=== PATIENT | male | born 1995 | race Two or more races ===

== ENCOUNTER 2018-04-30 09:01 | Emergency (ER) | payer OTHER ==
[~2018-04-30] VITALS: Ht 182.9 cm; Wt 74.8 kg
[2018-04-30 09:04] VITALS: BP 147/81
== END 2018-04-30 09:20 | disposition home or self-care (01) ==
LOC: ER 09:11
DX: J45.901 Unspecified asthma with (acute) exacerbation (principal)
CPT/HCPCS: 99283; A4606

== ENCOUNTER 2018-08-13 07:42 | Emergency (ER) | payer OTHER ==
[~2018-08-13] VITALS: Ht 182.9 cm; Wt 74.8 kg
--- NOTE | 2018-08-13 07:53 | NUR ---
patient came in the ER c/o asthma attack started this morning, onroom air, breathing evenly andunlabored. Kept comfortable, will continue to monitor accordingly.
[2018-08-13 07:56] VITALS: BP 132/101
--- NOTE | 2018-08-13 07:57 | NUR ---
Patient discharged to home in stable condition. Written and verbal after care instructions given. Patient verbalizes understanding of instruction.
== END 2018-08-13 07:57 | disposition home or self-care (01) ==
LOC: ER 07:42
DX: J45.901 Unspecified asthma with (acute) exacerbation (principal)

== ENCOUNTER 2018-11-28 11:31 | Emergency (ER) | payer SELFPAY ==
[~2018-11-28] VITALS: Ht 182.9 cm; Wt 86.2 kg
[2018-11-28 12:17] VITALS: BP 129/85
== END 2018-11-28 12:48 | disposition home or self-care (01) ==
LOC: ER 11:31
DX: J45.909 Unspecified asthma, uncomplicated (principal); F10.10 Alcohol abuse, uncomplicated; Y90.9 Presence of alcohol in blood, level not specified; Z76.0 Encounter for issue of repeat prescription

== ENCOUNTER 2022-12-03 01:03 | Emergency (ER) | payer OTHER ==
[~2022-12-03] VITALS: Ht 182.9 cm; Wt 81.6 kg
[2022-12-03 01:08] VITALS: BP 139/82; TEMP 98; O2SAT 98
[2022-12-03] MEDS ORDERED: ALBU8.5H8 INH (01:15)
== END 2022-12-03 01:22 | disposition home or self-care (01) ==
LOC: ER 01:13
DX: Z76.0 Encounter for issue of repeat prescription (principal); J45.909 Unspecified asthma, uncomplicated

== ENCOUNTER 2023-03-05 18:20 | Emergency (ER) | payer OTHER ==
[~2023-03-05] VITALS: Ht 182.9 cm; Wt 81.2 kg
[~2023-03-05 18:20] MED LIST: ALBU8.5H8 INH
[2023-03-05 20:20] VITALS: BP 141/76; TEMP 98.2; O2SAT 97
[2023-03-05] MEDS ORDERED: ALBU18HF2 INH (20:47)
[2023-03-05] MEDS ORDERED: PRED50TA PO (20:47)
== END 2023-03-05 21:05 | disposition home or self-care (01) ==
LOC: ER 18:25
DX: J45.901 Unspecified asthma with (acute) exacerbation (principal); Z79.899 Other long term (current) drug therapy; Z88.1 Allergy status to other antibiotic agents

== ENCOUNTER 2023-08-10 22:12 | Emergency (ER) | payer OTHER ==
[~2023-08-10] VITALS: Ht 182.9 cm; Wt 90.7 kg
[~2023-08-10 22:12] MED LIST changes: +ALBU18HF2 INH; +PRED50TA PO
[2023-08-10 22:26] VITALS: TEMP 97.9
[2023-08-10] MEDS ORDERED: LORAZEPAM INJ 2 MG/ML VIAL ONE (22:58)
[2023-08-10] MEDS: LORAZEPAM INJ 2 MG/ML VIAL IV ONE (22:59)
[2023-08-10] MEDS: IV NS 0.9% 1,000 ML BAG IV ONE (22:59)
[2023-08-10 23:29] LABS: BASOPHILS # (AUTO) 0.3 K/uL (0.0-0.2); BASOPHILS % (AUTO) 4.9 % (0.0-2.0); EOSINOPHILS # (AUTO) 0.2 K/uL (0.0-0.7); EOSINOPHILS % (AUTO) 3.5 % (0.0-6.0); HEMATOCRIT 44 % (39-51); HEMOGLOBIN 15.6 g/dL (13.5-17.5); LYMPHOCYTES # (AUTO) 2.4 K/uL (0.8-4.8); LYMPHOCYTES % (AUTO) 41.7 % (20.0-44.0); MEAN CORPUSCULAR HEMOGLOBIN 31 PG (26.0-33.0); MEAN CORPUSCULAR HGB CONC 35 g/dl (31.0-36.0); MEAN CORPUSCULAR VOLUME 87 fL (80-96); MONOCYTES # (AUTO) 0.4 K/uL (0.1-1.30); MONOCYTES % (AUTO) 7.6 % (2.0-12.0); NEUTROPHILS # (AUTO) 2.4 K/uL (1.8-8.9); NEUTROPHILS % (AUTO) 42.3 % (43.0-81.0); PLATELET COUNT (AUTO) 379 K/uL (150-450); RED BLOOD CELL COUNT(AUTO) 5.07 MIL/uL (4.5-6.0); RED CELL DISTRIBUTION WIDTH 13.5 % (11.5-15.0); WHITE BLOOD COUNT (AUTO) 5.6 K/uL (4.3-11.0)
[2023-08-10 23:33] LABS: APPEARANCE,URINE CLEAR (CLEAR); BILIRUBIN,URINE NEGATIVE (NEGATIVE); BLOOD, URINE NEGATIVE Ery/uL (NEGATIVE); COLOR,URINE YELLOW (YELLOW); KETONES,URINE NEGATIVE (NEGATIVE); LEUKOCYTE ESTERASE ,URINE NEGATIVE (NEGATIVE); NITRITE, URINE NEGATIVE (NEGATIVE); PH,URINE 6.5 (5.0-8.0); PROTEIN,URINE NEGATIVE (NEGATIVE); UGLUCOSE NEGATIVE (NEGATIVE); UROBILINOGEN,URINE 0.2 EU/dL (0.2)
[2023-08-10 23:40] LABS: CALCIUM, SERUM 8.4 mg/dL (8.5-10.1); CARBON DIOXIDE 22 mmol/L (21-32); CHLORIDE 104 mmol/L (98-107); CREATININE 0.8 mg/dL (0.6-1.3); GLUCOSE 115 mg/dL (74-106); POTASSIUM 3.4 mmol/L (3.5-5.1); SODIUM SERUM 140 mmol/L (136-145); UREA NITROGEN, BLOOD 4 mg/dL (7-18)
[2023-08-10 23:42] LABS: AMPHETAMINE, URINE NEGATIVE (NEGATIVE); BARBITURATE, URINE NEGATIVE (NEGATIVE); BENZODIAZEPINE, URINE NEGATIVE (NEGATIVE); CANNABINOID, URINE NEGATIVE (NEGATIVE); COCCAINE, URINE NEGATIVE (NEGATIVE); OPIATE, URINE NEGATIVE (NEGATIVE); PHENCYCLIDINE SCREEN,URINE NEGATIVE (NEGATIVE)
[2023-08-10 23:49] LABS: ALANINE AMINOTRANSFERASE 68 U/L (12-78); ALBUMIN 4.1 g/dL (3.4-5.0); ALCOHOL, BLOOD 361 mg/dL (0-10); ALKALINE PHOSPHATASE 73 U/L (46-116); ASPARTATE AMINOTRANSFERASE 74 U/L (15-37); BILIRUBIN,DIRECT 0.1 mg/dL (0.0-0.2); BILIRUBIN,TOTAL 0.5 mg/dL (0.2-1.0); TOTAL PROTEIN, SERUM 8.3 g/dL (6.4-8.2)
[2023-08-10 23:50] LABS: SALICYLATE 0.6 mg/dL (2.8-20.0)
[2023-08-10 23:51] LABS: ACETAMINOPHEN <10 ug/ml (10-30)
[2023-08-11 01:13] VITALS: BP 120/94; O2SAT 97
== END 2023-08-11 01:15 | disposition home or self-care (01) ==
LOC: ER 22:29
DX: F10.129 Alcohol abuse with intoxication, unspecified (principal); J45.909 Unspecified asthma, uncomplicated; Z88.8 Allergy status to other drugs, medicaments and biological substances; Z20.822 Contact with and (suspected) exposure to COVID-19; Y90.8 Blood alcohol level of 240 mg/100 ml or more
CPT/HCPCS: 99284; 96374; 96361; 93005; 85025; 80048; 80076; 81003; 36415; 87426; 80143; 80320; 80307; J2060; J7030; G0480